=== PATIENT | female | born 1975 | race Caucasian/White ===

== ENCOUNTER 2017-01-01 19:43 | Emergency (ER) | payer BC ==
--- NOTE | 2017-01-01 21:14 | RAD ---
RIGHT SHOULDER 3 VIEWS: Date: 01/01/17 FINDINGS: No fracture, dislocation, or AC joint widening seen at this time. No periarticular calcifications we re evident. The scapula appears intact, as do the visible adjacent ribs. IMPRESSION: No acute findings. POS: HOME
== END 2017-01-01 20:44 | disposition home or self-care (01) ==
LOC: BURERS 19:43
DX: S43.401A Unspecified sprain of right shoulder joint, initial encounter (principal); F41.9 Anxiety disorder, unspecified; F17.210 Nicotine dependence, cigarettes, uncomplicated; W01.0XXA Fall on same level from slipping, tripping and stumbling without subsequent striking against object, initial encounter